=== PATIENT | female | born 1975 | race Caucasian/White ===

== ENCOUNTER 2022-11-23 18:22 | Emergency (ER) | payer BC ==
[2022-11-23 18:32] VITALS: BP 135/83; PULSE 57; RESP 18; TEMP 98.2; BMI 28.0
[2022-11-23 21:11] LABS: BASO % 0.6 % (0-2.0); EOS % 1.7 % (0-4.5); HEMATOCRIT 37.1 % (32.4-45.2); HEMOGLOBIN 12.4 GM/dL (10.7-15.3); LYMPH % 24.4 % (8-40); MCH 27.6 pg (25.7-33.7); MCHC 33.5 g/dl (32.0-36.0); MEAN CELL VOLUME 82.5 fl (80-96); MEAN PLT VOLUME 7.6 fl (7.5-11.1); NEUT % 67.3 % (42.8-82.8); PLATELET COUNT 271 10^3/uL (134-434); RDW 14.3 % (11.6-15.6)
[2022-11-23 21:18] LABS: INR 1.08 (0.83-1.09); PROTHROMBIN TIME (PATIENT) 12.5 SEC (9.7-13.0)
[2022-11-23 21:34] LABS: CALCIUM 9.4 mg/dL (8.5-10.1)
[2022-11-23 21:35] LABS: ALBUMIN 3.9 g/dl (3.4-5.0); BLOOD UREA NITROGEN 8.9 mg/dL (7-18)
[2022-11-23 21:38] LABS: CREATININE 0.6 mg/dL (0.55-1.3)
[2022-11-23 21:40] LABS: BILIRUBIN,TOTAL 0.2 mg/dL (0.2-1)
== END 2022-11-24 00:23 | disposition home or self-care (01) ==
LOC: JER 18:22 → JERFT 18:22 → JER 11-24 00:23
DX: M54.2 Cervicalgia (principal); R26.89 Other abnormalities of gait and mobility; R22.1 Localized swelling, mass and lump, neck
CPT/HCPCS: 36415; 70450-TC; 70491-TC; 80053; 84703; 85025; 85610; 87040; 93005; 93010; 99285-25; Q9967